=== PATIENT | male | born 1985 | race Two or more races ===

== ENCOUNTER → 2020-04-30 | Emergency (ER) | payer OTHER ==
[~2020-04-30] VITALS: Ht 160 cm; Wt 74.8 kg
[~2020-04-30] MED LIST: ACETAMINOPHEN 325 MG TAB PO ONE; ASCORBIC ACID 500 MG TAB PO ONE; ONDANSETRON ODT 4 MG TAB PO ONE; SODIUM CHLORIDE 0.9% 1,000 ML IV ONE; ZINC SULFATE 220mg CAP or TAB PO ONE; hydrOXYchloroQUINE SULFATE 200 MG TAB PO ONE; methylPREDNISolone SOD SUCC 125 MG/2 ML VL IV ONE
[2020-04-30 16:25] VITALS: BP 122/79
== END | disposition home or self-care (01) ==
LOC: ER 16:14 → EDSEX 16:14
DX: U07.1 COVID-19 (principal); J18.9 Pneumonia, unspecified organism
CPT/HCPCS: 71045; 99284; Q0162; U0003